=== PATIENT | female | born 1990 | race Caucasian/White ===

== ENCOUNTER 2019-07-27 23:28 | Emergency (ER) | payer OTHER, BC ==
[~2019-07-27] VITALS: Ht 170.2 cm; Wt 114.3 kg
[~2019-07-27 23:28] MED LIST: EXCEDRIN EXTRA1 EAC1 PO; NAPROXEN500 MG PO; NORCO 5-325 TA1 EACH PO
[2019-07-27] MEDS ORDERED: GABAPENTIN300 MG (23:40)
[2019-07-27] MEDS ORDERED: BUPROPION HCL100 M1 (23:41)
[2019-07-27] MEDS ORDERED: RISPERIDONE2 MG (23:41)
== END 2019-07-28 01:00 | disposition home or self-care (01) ==
LOC: ED 23:28
DX: S90.31XA Contusion of right foot, initial encounter (principal); W22.8XXA Striking against or struck by other objects, initial encounter; Y99.0 Civilian activity done for income or pay; G43.909 Migraine, unspecified, not intractable, without status migrainosus; F17.200 Nicotine dependence, unspecified, uncomplicated; Z88.0 Allergy status to penicillin; Z79.899 Other long term (current) drug therapy; Z79.891 Long term (current) use of opiate analgesic
CPT/HCPCS: 73630; 99283-25